=== PATIENT | female | born 1980 | race Two or more races ===

== ENCOUNTER 2021-10-03 06:53 | Day surgery (SDC) | payer OTHER ==
[~2021-10-03] VITALS: Ht 152.4 cm; Wt 63.5 kg
== END 2021-10-03 16:40 | disposition home or self-care (01) ==
LOC: CIR.AMB 06:53
PROVIDERS: ATTEND Obstetrics & Gynecology
DX: D06.0 Carcinoma in situ of endocervix (principal); N72 Inflammatory disease of cervix uteri; Z88.0 Allergy status to penicillin; Z20.822 Contact with and (suspected) exposure to COVID-19

== ENCOUNTER 2021-11-29 12:15 | Inpatient (IN) | payer OTHER ==
[~2021-11-29] VITALS: Ht 152.4 cm; Wt 63.5 kg
== END 2021-12-05 10:09 | disposition home or self-care (01) | DRG 743 ==
LOC: SURG 12-04 07:00 → O/R 12-04 07:15 → OB/GYN 12-04 09:33 → SURG 12-04 11:40 → OB/GYN 12-05 10:09
PROVIDERS: ADMIT Obstetrics & Gynecology; ATTEND Obstetrics & Gynecology
PROC: 0UT74ZZ Resection of Bilateral Fallopian Tubes, Percutaneous Endoscopic Approach (ICD-10-PCS; 2021-12-04)
PROC: 0DNU4ZZ Release Omentum, Percutaneous Endoscopic Approach (ICD-10-PCS; 2021-12-04)
PROC: 0UT94ZZ Resection of Uterus, Percutaneous Endoscopic Approach (ICD-10-PCS; principal; 2021-12-04 11:40)
DX: N87.1 Moderate cervical dysplasia (principal); N80.0 Endometriosis of uterus; Z20.822 Contact with and (suspected) exposure to COVID-19